=== PATIENT | male | born 1950 | race Caucasian/White ===

== ENCOUNTER 2017-07-01 13:57 | Day surgery (SDC) | payer MEDICARE ==
[~2017-07-01 13:57] MED LIST: Buffered Lidocaine 0.9% SYRIN* 5 ML/SYR SYRINGE INTRADERM ONE
[2017-07-01] MEDS ORDERED: Midazolam* 1 MG/ML 5 ML VIAL (5 MG) ONE (16:41)
[2017-07-01] MEDS ORDERED: fentaNYL* 50 MCG/ML 2 ML VIAL (100 MCG VIAL) ONE (16:41)
[2017-07-01] MEDS ORDERED: Bupivacaine 0.25% SDV* 30 ML ONE (17:24)
[2017-07-01 18:32] VITALS: BP 118/76
--- NOTE | 2017-07-02 06:42 | OP ---
DATE OF OPERATION: 07/01/17 - [facility] DATE OF : 50 SURGEON: Eugene Lambert MD SAND SYSTEM OPERATOR: LOUISA Quezada. An casino assistant manager was needed for the entirety of the procedure to aid in positioning the thumb and some retraction. ANESTHESIOLOGIST: Lelo Medina MD ANESTHESIA: Local MAC. 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 POST-OP DIAGNOSIS: Left thumb coagulated ulnar digital artery. OPERATIVE PROCEDURE: Excision of coagulated left thumb ulnar digital artery measuring 3 cm. INDICATIONS: Enrique has had a palpable cord along the ulnar aspect of the thumb , most prominent over the proximal phalanx and extending out towards the IP joint. It is quite symptomatic to him. 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 I told him I thought it was probably an AVM. We talked about the risks and benefits, he understood and wished to proceed. ESTIMATED BLOOD LOSS: 500 mL. COMPLICATIONS: None. FINDINGS: See above. DESCRIPTION OF PROCEDURE: Enrique was seen in the preoperative holding area. The correct site, side, and procedure were identified. We came back to the operating room where he got some anesthesia and I performed a digital block proximally with 0.25% plain Marcaine. The arm was then prepped and draped in the usual fashion and time-out was performed. I began by making a trapezoid shaped flap with the long limb coursing over the mid axial line of the thumb. Full-thickness flap was raised off of the neurovascular bundle. I could feel the cord in line with the neurovascular bundle. I went ahead and opened the mesoneurium around the nerve and dissected out the nerve in its entirety. This was preserved through-out the case and was retracted radially. Just deep to that was a very coagulated, dilated, and tortuous ulnar digital artery. It was probably 3 to 4 mm in diameter. I went ahead and extended my incision a little bit distal and proximally. I brought it back to the MP joint flexion crease. I found the ulnar digital artery more proximally where it was more normal looking. I found it distally where it was more normal looking. I used a bipolar to cauterize all the branches coming off the artery. Once I had it completely dissected out, I went ahead and took a 4- 0 silk tie and tied off the artery distally where it looked more normal and tied it off proximally. When I tied it off proximally, I just threw 1 throw of the tie and then let down the tourniquet. The thumb pinked up immediately. I therefore re-exsanguinated the thumb and reinflated the tourniquet. The proximal artery was then tied off. I then went ahead and clipped out the coagulated portion and handed this off as a specimen. The wound was then irrigated out and closed with 4-0 Monocryl suture and some Steri-Strips. The wound was dressed with Xeroform, 1-inch Brad, and Coban. Tourniquet was deflated, the thumb pinked up immediately. He was taken to recovery room in stable condition. [id number]/[facility] #: [id number] NITHIN
== END 2017-07-01 18:45 | disposition home or self-care (01) ==
LOC: OREAST 13:57
PROVIDERS: ATTEND Orthopaedic Surgery Hand Surgery
DX: I74.2 Embolism and thrombosis of arteries of the upper extremities (principal); E78.5 Hyperlipidemia, unspecified; Z79.82 Long term (current) use of aspirin; Z85.828 Personal history of other malignant neoplasm of skin
CPT/HCPCS: 88305; J2250; J3010